=== PATIENT | male | born 1980 | race Two or more races ===

== ENCOUNTER 2019-04-20 02:20 | Emergency (ER) | payer OTHER ==
[~2019-04-20] VITALS: Ht 170.2 cm; Wt 81.6 kg
[2019-04-20 02:48] VITALS: BP 121/81
== END 2019-04-20 04:40 | disposition left against medical advice (07) ==
LOC: ER 02:24
DX: F41.9 Anxiety disorder, unspecified (principal); Z53.21 Procedure and treatment not carried out due to patient leaving prior to being seen by health care provider

== ENCOUNTER 2022-06-08 07:12 | Emergency (ER) | payer OTHER ==
[~2022-06-08] VITALS: Ht 172.7 cm; Wt 86.3 kg
[2022-06-08 07:30] VITALS: BP 150/98
== END 2022-06-08 07:33 | disposition left against medical advice (07) ==
LOC: EDBD 07:12 → ER 07:12
DX: F41.9 Anxiety disorder, unspecified (principal); Z53.21 Procedure and treatment not carried out due to patient leaving prior to being seen by health care provider